=== PATIENT | female | born 1985 | race African-American/Black ===

== ENCOUNTER 2018-01-21 17:11 | Inpatient (IN) | payer MEDICAID ==
[~2018-01-21] VITALS: Ht 157.5 cm; Wt 71.7 kg
--- NOTE | 2018-01-21 17:25 | NUR ---
PRESENTS TO ER C/O COUGH, CONGESTION, FEVER, AND SOB X 3 DAYS. PATIENT HAS HX OF HIV. A/OX 4. BREATHING EVEN AND UNLABORED AT THIS TIME. NO DISTRESS NOTED. VITALS STABLE. SAFETY AND COMFORT MEASURES IN PLACE. AWAITING MD ORDERS.
--- NOTE | 2018-01-21 17:45 | NUR ---
NEW IV STARTED ON LAC, 20G. BLOOD DRAWN AND SENT TO LAB.
[2018-01-21 17:50] LABS: BASOPHILS # (AUTO) 0.3 /CMM (0.0-0.2); BASOPHILS % (AUTO) 3.3 % (0.0-2.0); HEMATOCRIT 32 % (33-45); HEMOGLOBIN 10.9 g/dL (11.5-14.8); LYMPHOCYTES # (AUTO) 1.4 /CMM (0.8-4.8); LYMPHOCYTES % (AUTO) 17.2 % (20.0-44.0); MEAN CORPUSCULAR HGB CONC 35 g/dl (31.0-36.0); MEAN CORPUSCULAR VOLUME 94 fL (82-100); MONOCYTES # (AUTO) 0.5 /CMM (0.1-1.30); MONOCYTES % (AUTO) 6.9 % (2.0-12.0); NEUTROPHILS # (AUTO) 5.7 /CMM (1.8-8.9); NEUTROPHILS % (AUTO) 72.6 % (43.0-81.0); PLATELET COUNT (AUTO) 341 /CMM (150-450); RDW COEFFICIENT OF VARIATION 15.1 (11.5-15.0); RED BLOOD CELL COUNT(AUTO) 3.38 MIL/uL (4.0-5.2); WHITE BLOOD COUNT (AUTO) 7.9 K/uL (4.3-11.0)
[2018-01-21] MEDS ORDERED: IV NS 0.9% 1,000 ML BAG IV ONE (18:00)
[2018-01-21] MEDS ORDERED: ALBUTEROL FS 2.5 MG/3 ML VIAL.NEB NEB ONE (18:00)
[2018-01-21] MEDS ORDERED: IPRATROPIUM NEB FS 0.5 MG/2.5 ML AMPUL.NEB NEB ONE (18:00)
[2018-01-21] MEDS ORDERED: ALBUTEROL FS 2.5 MG/3 ML VIAL.NEB ONE (18:19)
[2018-01-21] MEDS ORDERED: IPRATROPIUM NEB FS 0.5 MG/2.5 ML AMPUL.NEB ONE (18:19)
--- NOTE | 2018-01-21 18:28 | NUR ---
NEW IV STARTED ON RAC, 20G. IV ON LAC, NOT INFUSING WELL. IV FROM LEFT AC REMOVED AND SITE SECURED.
[2018-01-21 18:30] LABS: INR 0.96 (0.85-1.15)
[2018-01-21 18:33] LABS: TROPONIN I < 0.017 ng/mL (0.00-0.056)
[2018-01-21 18:45] LABS: CALCIUM, SERUM 8.8 mg/dL (8.5-10.1); CARBON DIOXIDE 29 mmol/L (21-32); CHLORIDE 100 mmol/L (98-107); CREATININE 0.9 mg/dL (0.6-1.3); GLUCOSE 95 mg/dL (74-106); POTASSIUM 3.4 mmol/L (3.5-5.1); SODIUM SERUM 136 mmol/L (136-145); UREA NITROGEN, BLOOD 9 mg/dL (7-18)
[2018-01-21 18:51] LABS: ALANINE AMINOTRANSFERASE 19 U/L (12-78); ALBUMIN 2.3 g/dL (3.4-5.0); ALKALINE PHOSPHATASE 61 U/L (46-116); ASPARTATE AMINOTRANSFERASE 22 U/L (15-37); BILIRUBIN,DIRECT 0.1 mg/dL (0.0-0.2); BILIRUBIN,TOTAL 0.5 mg/dL (0.2-1.0); TOTAL PROTEIN, SERUM 7.4 g/dL (6.4-8.2)
[2018-01-21] MEDS ORDERED: CEFTRIAXONE 1GM BAG (ER ONLY) 50 ML IV ONE (18:59)
[2018-01-21] MEDS ORDERED: SULFAMETHOXAZOLE/TRIMETHOPRIM 20 ML in IV D5W 500 ML IV ONE (19:00)
[2018-01-21] MEDS ORDERED: SULFAMETHOXAZOLE/TRIMETHOPRIM 20 ML in IV D5W 500 ML IV SCH (19:00)
[2018-01-21] MEDS ORDERED: AZITHROMYCIN 500 MG in IV D5W 250 ML IV ONE (19:00)
[2018-01-21] MEDS ORDERED: CEFTRIAXONE 1GM BAG (ER ONLY) 1 GM/50 ML PIGGYBACK IV ONE (19:00)
--- NOTE | 2018-01-21 19:16 | NUR ---
REPORT GIVEN TO PRASANNA MATHEW FOR CASSANDRA.
--- NOTE | 2018-01-21 19:25 | NUR ---
RECEIVED REPORT FROM PRIYANKA KUO FOR CASSANDRA.
[2018-01-21] MEDS ORDERED: SULFAMETHOXAZOLE/TRIMETHOPRIM 25 ML in IV D5W 500 ML IV ONE (19:30)
[2018-01-21 20:00] VITALS: BP 112/70
--- NOTE | 2018-01-21 20:00 | NUR ---
RECEIVED REPORT REGARDING PATIENT FROM E MARKETING SPECIALIST PRASANNA. AWAITING TO ADMIT THE PATIENT TO THE UNIT
--- NOTE | 2018-01-21 20:00 | NUR ---
SPUTUM CULTURE COLLECTED AND SENT TO LAB
--- NOTE | 2018-01-21 20:00 | NUR ---
PT UNABLE TO GIVE URINE SAMPLE AND REFUSED YIP CATHETER. MADE AWARE.
--- NOTE | 2018-01-21 20:20 | NUR ---
REPORT GIVEN TO LINE UP WORKER ANA FOR CASSANDRA.
[2018-01-21] MEDS ORDERED: IPRATROPIUM NEB FS 0.5 MG/2.5 ML AMPUL.NEB NEB PRN (20:30)
[2018-01-21] MEDS ORDERED: MAG HYDROX/AL HYDROX/SIMETH 30 ML UDC PO PRN (20:30)
[2018-01-21] MEDS ORDERED: ALBUTEROL FS 2.5 MG/0.5 ML VIAL.NEB NEB PRN (20:30)
[2018-01-21] MEDS ORDERED: TUBERCULIN,PURIF.PROT.DERIV. 5 TU/0.1 ML VIAL ID ONE (20:30)
[2018-01-21] MEDS ORDERED: MAGNESIUM HYDROXIDE 30 ML UDC PO PRN (20:30)
[2018-01-21] MEDS ORDERED: ZOLPIDEM TARTRATE 5 MG TABLET PO PRN (20:30)
[2018-01-21] MEDS ORDERED: Z GUARD REMEDY 2 OZ OINT TP PRN (20:30)
[2018-01-21] MEDS ORDERED: ACETAMINOPHEN 325 MG TABLET PO PRN (20:30)
[2018-01-21] MEDS ORDERED: ONDANSETRON HCL/PF 4 MG/2 ML VIAL IVP PRN (20:30)
--- NOTE | 2018-01-21 20:40 | NUR ---
LICENSED CUSTOMS BROKER OPENING NOTE RECEIVED PATIENT ON A GURNEY, ALERT ORIENTEDX4, ABLE TO VERBALIZE NEEDS. PATIENT IS ON 3L O2 THERAPY VIA NC, TOLERATES WELL. REPORTS GENERALIZED WEAKNESS AND PAIN IN THE RIGHT HIP. UPON ASSESSMENT SWELLING AND LUMP NOTED ON THE RIGHT HIP. PHOTOS TAKEN AND PLACED IN CHART. SKIN OTHERWISE IS INTACT. PATIENT PRESENTS WITH 103.1 FEVER. COOLING MEASURES IMPLEMENTED IMMEDIATELY. RESPIRATIONS ARE EVEN AND UNLABORED. DENIES CHEST PAIN AND SOB AT THIS TIME. PATIENT IS CURRENTLY RECEIVING ANTIBIOTIC THAT WAS INITIATED IN THE ER. RIGHT AC IVC 20G, PATENT AND INTACT. PATIENT IS CONTINENT, ABLE TO AMBULATE TO THE BATHROOM WITH ASSISTANCE DUE TO GENERALIZED WEAKNESS. PATIENT ADMITTED TO TELEMETRY UNIT WITH CARDIAC MONITORING AT THIS TIME. AIRBORNE ISOLATION OBSERVED. PATIENT WAS PLACED IN NEGATIVE PRESSURE ROOM. WAS MADE COMFORTABLE. ALL BELONGINGS ARE CHECKED AND ACCOUNTED FOR. MOTHER IS AT BEDSIDE. SAFETY MEASURES IN PLACE, BED IN LOW LOCKED POSITION, HOB ELEVATED, SIDE RAILS UP X2, CALL LIGHT WITHIN EASY REACH, WILL CARRY OUT ALL THE ADMISSION ORDERS AND CONTINUE TO MONITOR.
[2018-01-21] MEDS: predniSONE 20 MG TABLET PO SCH (21:28)
[2018-01-21] MEDS: IV NS 0.9% 1,000 ML IV PRN (21:29)
--- NOTE | 2018-01-21 21:30 | NUR ---
medication Tubersol was not administered as it was not available in the unit or anywhere else in the hospital. will endorse to am nurse to obtain it from pharmacy and administer.
[2018-01-21] MEDS ORDERED: LEVOFLOXACIN 750 MG /D5W 150ML 150 ML IV ONE (22:20)
[2018-01-21] MEDS: LEVOFLOXACIN 750 MG /D5W 150ML 750 MG in PREMIX 1 EA IV SCH (22:47)
--- NOTE | 2018-01-21 23:00 | NUR ---
PATIENT'S BODY TEMPERATURE DECREASED TO 99.0 AT THIS TIME. WILL CONTINUE TO MONITOR.
[2018-01-21 23:43] VITALS: BP 112/70
[2018-01-22] VITALS: BP 94/57
[2018-01-22 04:00] VITALS: BP 101/49
[2018-01-22] MEDS: SULFAMETH/TRIMETH 800/160 MG 1 UDTAB TABLET PO SCH ×2 (04:31→13:31)
--- NOTE | 2018-01-22 06:00 | NUR ---
PATIENT REFUSES MORNING LABS. WILL REATTEMPT AT A LATER TIME.
--- NOTE | 2018-01-22 06:46 | NUR ---
CAMP HEAD COUNSELOR CLOSING NOTE PATIENT IN BED SLEEPING, EASILY AROUSED TO VERBAL STIMULI, ORIENTEDX4, ABLE TO VERBALIZE NEEDS. PATIENT IS ON ROOM AIR, TOLERATES WELL. SKIN IS INTACT. PATIENT 'S BODY TEMPERATURE REMAINED WNL THROUGHOUT THE NIGHT. RIGHT AC IVC 20G, WIT FLUIDS RUNNING AT 75ML/HR, PATENT AND INTACT. PATIENT IS CONTINENT, ABLE TO AMBULATE TO THE BATHROOM WITH ASSISTANCE DUE TO GENERALIZED WEAKNESS. PATIENT ON CARDIAC MONITORING WITH SR AND HR OF 76 AT THIS TIME. AIRBORNE ISOLATION OBSERVED. PATIENT KEPT CLEAN AND COMFORTABLE. ALL NEEDS ATTENDED, SAFETY MEASURES IN PLACE, BED IN LOW LOCKED POSITION, HOB ELEVATED, SIDE RAILS UP X2, CALL LIGHT WITHIN EASY REACH, WILL ENDORSE TO AM NURSE FOR CASSANDRA.
--- NOTE | 2018-01-22 07:50 | NUR ---
ACOUSTICAL TILE PATTERNMAKER OPENING NOTE RECEIVED BEDSIDE SBAR REPORT. PATIENT IS A/O X3, COOPERATIVE IN BED. BED IS LOCKED IN LOWEST POSITION, SIDE RAILS UP X2. CALL LIGHT WITHIN REACH. ON AIRBORNE ISOLATION FOR R/O TB. PATIENT IN BED SLEEPING, EASILY AROUSED TO VERBAL STIMULI. SKIN IS INTACT WITH L/HIP LUMP. SPO2 97% ON RA. VS WNL. PATIENT IS CONTINENT, ABLE TO AMBULATE TO THE BATHROOM. PATIENT ON EXTERNAL CARDIAC MONITORING WITH SR 76. ALL NEEDS ATTENDED, SAFETY MEASURES IN PLACE. WILL CONTINUE TO ASSESS/MONITOR THROUGHOUT THE SHIFT.
[2018-01-22 08:00] VITALS: BP 93/54
[2018-01-22] MEDS: predniSONE 20 MG TABLET PO SCH ×2 (08:27→21:18)
[2018-01-22] MEDS: PANTOPRAZOLE 40 MG TABLET.DR PO SCH (08:27)
--- NOTE | 2018-01-22 10:46 | NUR ---
WOUND CARE CONSULT: LIMITED ASSESSMENT TODAY PT ONLY ALLOWED ASSESSMENT OF RT HIP AREA. RT HIP HAS RAISED AREA WHICH IS TENDER, NO DRAINAGE NOTED. RECOMMEND SURGICAL CONSULT. WILL SEE PRN. Addendum: 01/22/18 at 1047 by KAYLEIGH SIMPSON WNDNU Amended: Links added.
--- NOTE | 2018-01-22 12:22 | NUR ---
Social service consult requested by Dr. See for substance abuse. Pt. is a 32 year old female who was admitted to [facility] for pneumonia. SW discussed case with Ju Gallardo prior to seeing the pt. Per SYLVIA Gallardo, pt. does not want to talk to anyone at this time. Pt. informed SYLVIA Gallardo earlier that she lives with her mom and has no children. Pt. was in group home for 2 1/2 months and was released 01/01/2018. Pt. is HIV positive and not compliant with her medications. SW to attempt to talk to pt. at a later time when she is more open to talking.
--- NOTE | 2018-01-22 14:36 | NUR ---
GOLD LEAF ROLLER CLOSING NOTE RECEIVED BEDSIDE SBAR REPORT. PATIENT IS A/O X3, COOPERATIVE IN BED. BED IS LOCKED IN LOWEST POSITION, SIDE RAILS UP X2. CALL LIGHT WITHIN REACH. ON AIRBORNE ISOLATION FOR R/O TB. PATIENT IN BED SLEEPING, EASILY AROUSED TO VERBAL STIMULI. SKIN IS INTACT WITH L/HIP LUMP. SPO2 97% ON RA. VS WNL. PATIENT IS CONTINENT, ABLE TO AMBULATE TO THE BATHROOM. PATIENT ON EXTERNAL CARDIAC MONITORING WITH SR 76. ALL NEEDS ATTENDED, SAFETY MEASURES IN PLACE. WILL CONTINUE TO ASSESS/MONITOR THROUGHOUT THE SHIFT. Addendum: 01/22/18 at 1459 by JONNY MARCANO RN WRONG NOTE
[2018-01-22 16:00] VITALS: BP 118/77
[2018-01-22] MEDS: IV NS 0.9% 1,000 ML IV PRN (18:34)
--- NOTE | 2018-01-22 19:05 | NUR ---
MS RN CLOSING NOTE PATIENT IS A/O X3, COOPERATIVE IN BED. BED IS LOCKED IN LOWEST POSITION, SIDE RAILS UP X2. CALL LIGHT WITHIN REACH. RESPIRATORY ISOLATION DISCHARGED BY DR HANKS. PATIENT IN BED SLEEPING, EASILY AROUSED TO VERBAL STIMULI. SKIN IS INTACT WITH L/HIP LUMP. SURGICAL TEAM INFORMED. SPO2 96% ON RA. VS WNL. PATIENT IS CONTINENT, ABLE TO AMBULATE TO THE BATHROOM. STERILE CONTAINER PROVIDED FOR URINE COLLECTION. PATIENT EDUCATED ON CLEAN CATCH TECHNIQUE AND VERBALIZED UNDERSTANDING. ALL NEEDS ATTENDED, SAFETY MEASURES IN PLACE. ENDORSED TO THE ADDING MACHINE OPERATOR NURSE FOR CASSANDRA.
--- NOTE | 2018-01-22 19:40 | NUR ---
RN MS OPENING NOTES PATIENT IN BED, AWAKE ALERT AND ORIENTED X 3-4 RESPIRATIONS EVEN AND UNLABORED WITH EQUAL RISE AND FALL OF CHEST, NO FACIAL GRIMACING PRESENT, NO COMPLAINTS OF PAIN OT DISCOMFORT AT THIS TIME, RIGHT AC IV SITE 20 # GAUGE INTACT AND PATENT, NO REDNESS , NO INFILTRATION PRESENT, IVF FLUIDS RUNNING ORDERED, ORIENTED TO STAFF, ROOM AND CALL LIGHT, CALL LIGHT KEPT WITHIN REACH, ALL NEEDS ATTENDED AT THIS TIME, REMAINS CLEAN AND DRY ASSISTED TO BATHROOM PATIENT IS AMBULATORY, SAFETY PRECAUTIONS RENDERED, LOW BED, LOCKED, , WILL CONTINUE TO MONITOR.
[2018-01-22 20:00] VITALS: BP 104/60
[2018-01-22] MEDS ORDERED: SULFAMETHOXAZOLE/TRIMETHOPRIM 10 ML in IV D5W 250 ML IV SCH (20:00)
[2018-01-22 21:17] LABS: HEMATOCRIT 33 % (33-45); LYMPHOCYTES # (AUTO) 0.7 /CMM (0.8-4.8); LYMPHOCYTES % (AUTO) 10.1 % (20.0-44.0); MEAN CORPUSCULAR HGB CONC 34 g/dl (31.0-36.0); MEAN CORPUSCULAR VOLUME 97 fL (82-100); MONOCYTES # (AUTO) 0.2 /CMM (0.1-1.30); MONOCYTES % (AUTO) 2.5 % (2.0-12.0); NEUTROPHILS # (AUTO) 6.2 /CMM (1.8-8.9); NEUTROPHILS % (AUTO) 87.4 % (43.0-81.0); PLATELET COUNT (AUTO) 279 /CMM (150-450); RDW COEFFICIENT OF VARIATION 16.4 (11.5-15.0); WHITE BLOOD COUNT (AUTO) 7.1 K/uL (4.3-11.0)
[2018-01-22 21:19] LABS: APPEARANCE,URINE SL CLOUDY (CLEAR); BILIRUBIN,URINE NEGATIVE (NEGATIVE); BLOOD, URINE NEGATIVE Ery/uL (NEGATIVE); COLOR,URINE YELLOW (YELLOW); KETONES,URINE NEGATIVE (NEGATIVE); LEUKOCYTE ESTERASE ,URINE NEGATIVE (NEGATIVE); NITRITE, URINE NEGATIVE (NEGATIVE); PH,URINE 7.5 (5.0-8.0); PROTEIN,URINE TRACE mg/dl (NEGATIVE); UGLUCOSE TRACE mg/dL (NEGATIVE); UROBILINOGEN,URINE >=8.0 EU/dL (0.2)
[2018-01-22] MEDS: LEVOFLOXACIN 750 MG /D5W 150ML 750 MG in PREMIX 1 EA IV SCH (21:19)
[2018-01-22 21:30] LABS: BILIRUBIN,TOTAL 0.3 mg/dL (0.2-1.0); CALCIUM, SERUM 9.2 mg/dL (8.5-10.1); CREATININE 0.8 mg/dL (0.6-1.3); MAGNESIUM 1.7 mg/dL (1.8-2.4); PHOSPHORUS 1.6 mg/dL (2.5-4.9); POTASSIUM 3.5 mmol/L (3.5-5.1)
[2018-01-22 21:32] LABS: BACTERIA,URINE Few /HPF (None Seen); RBC,URINE 0-2 /HPF (0-2); SQUAMOUS EPITHELIAL CELL,UR Few /HPF (None Seen); WBC,URINE 0-2 /HPF (0-3)
[2018-01-22 21:36] LABS: THYROID STIMULATING HORMONE 0.123 uIU/mL (0.358-3.74)
--- NOTE | 2018-01-23 01:24 | NUR ---
RN MS NOTES PATIENT REQUESTING FOR A SLEEPING PILL, YMRTLEIEN ORDERED OFFERED, PATIENT AGREED TO TAKE, GIVEN ORDERED. WILL CONTINUE TO MONITOR.
--- NOTE | 2018-01-23 03:30 | NUR ---
RN NOTES LIA COSTELLO MADE AWARE OF OUT OF RANGE LABS , MAG AND PHOS LAB LEVELS, NEGATIVE TEST, AWAITING NEW ORDERS TO NOTE AND CARRY OUT , WILL FOLLOW ORDERED.
[2018-01-23] MEDS ORDERED: K PHOS NEUTRAL 250 MG TABLET PO ONE (04:00)
[2018-01-23] MEDS: MAGNESIUM OXIDE 400 MG TABLET PO SCH ×2 (04:42→21:04)
[2018-01-23] MEDS: SULFAMETHOXAZOLE/TRIMETHOPRIM 20 ML in IV D5W 500 ML IV SCH ×4 (04:42→15:12)
--- NOTE | 2018-01-23 05:44 | NUR ---
RN MS NOTES PATIENT REFUSED AM LAB DRAW.
--- NOTE | 2018-01-23 06:37 | NUR ---
RN MS CLOSING NOTES PATIENT IN BED, AWAKE ALERT AND ORIENTED X 3-4 RESPIRATIONS EVEN AND UNLABORED WITH EQUAL RISE AND FALL OF CHEST, NO FACIAL GRIMACING PRESENT, NO COMPLAINTS OF PAIN OT DISCOMFORT AT THIS TIME, RIGHT AC IV SITE 20 # GAUGE INTACT AND PATENT, NO REDNESS , NO INFILTRATION PRESENT, IVF FLUIDS RUNNING ORDERED CALL LIGHT KEPT WITHIN REACH, ALL NEEDS ATTENDED AT THIS TIME, SAFETY PRECAUTIONS RENDERED, LOW BED, LOCKED, , WILL CONTINUE TO MONITOR AND ENDORSE TO NEXT SHIFT.
[2018-01-23] MEDS: PANTOPRAZOLE 40 MG TABLET.DR PO SCH (06:50)
[2018-01-23 07:54] VITALS: BP 114/70
--- NOTE | 2018-01-23 08:00 | NUR ---
MS RN RECEIVED ON BED, AWAKE,ALERT,ORIENTED X4,PATIENT APPEARS WEAK, THOUGH DENIES PAIN AT THIS TIME. ABDOMEN SOFT,POSITIVE BOWEL SOUNDS,WILL MONITOR PATIENT'S CONDITION.
[2018-01-23] MEDS: predniSONE 20 MG TABLET PO SCH ×2 (08:58→21:04)
--- NOTE | 2018-01-23 09:00 | NUR ---
MS RN REFUSED BREAKFAST, DUE MEDS GIVEN,TOLERATE DWELL.
--- NOTE | 2018-01-23 10:02 | NUR ---
MS RN WAS SEEN BY DR. QIU ,NO ORDERS AT THIS TIME.
--- NOTE | 2018-01-23 13:30 | NUR ---
ms rn received a call from [facility] w/ blood culture result - gram positive cocci in chain,luke figueroa notified and aware.
[2018-01-23] MEDS: HYDROCODONE/APAP 5/325MG 1 EACH TABLET PO PRN ×2 (15:08→21:12)
--- NOTE | 2018-01-23 15:20 | NUR ---
ms rn was seen by dr. mishra, did debridement to right hip. w/ dressing intact,noted to have moderate purulent drainage.
[2018-01-23 16:58] VITALS: BP 107/65
--- NOTE | 2018-01-23 19:30 | NUR ---
MS RN OPENING NOTES: PATIENT IN BED, AOX4, ON ROOM AIR, BREATHING EVEN AND UNLABORED. APPEARS CALM AND IN NO DISTRESS, DENIES PAIN AT THIS TIME. NOTED CLEAN DRY DRESSING OVER R HIP. PIV OVER RAC G20 INTACT AND PATENT, CURRENTLY INFUSING WITH IV ATB BACTRIM. PROVIDED FOR COMFORT AND SAFETY. BED IN LOWEST AND LOCKED POSITION, SIDERAILS UP X 2, CALL LIGHT WITHIN REACH. WILL CONT TO MONITOR.
[2018-01-23 20:00] VITALS: BP 113/62
[2018-01-23] MEDS: LEVOFLOXACIN 750 MG /D5W 150ML 750 MG in PREMIX 1 EA IV SCH (21:16)
[2018-01-23 23:11] LABS: BASOPHILS % (AUTO) 0.1 % (0.0-2.0); HEMATOCRIT 33 % (33-45); HEMOGLOBIN 11.1 g/dL (11.5-14.8); LYMPHOCYTES # (AUTO) 1.8 /CMM (0.8-4.8); LYMPHOCYTES % (AUTO) 16.5 % (20.0-44.0); MEAN CORPUSCULAR HGB CONC 34 g/dl (31.0-36.0); MEAN CORPUSCULAR VOLUME 96 fL (82-100); MONOCYTES # (AUTO) 0.5 /CMM (0.1-1.30); MONOCYTES % (AUTO) 4.6 % (2.0-12.0); NEUTROPHILS # (AUTO) 8.4 /CMM (1.8-8.9); NEUTROPHILS % (AUTO) 78.8 % (43.0-81.0); PLATELET COUNT (AUTO) 403 /CMM (150-450); RDW COEFFICIENT OF VARIATION 15.8 (11.5-15.0); RED BLOOD CELL COUNT(AUTO) 3.42 MIL/uL (4.0-5.2); WHITE BLOOD COUNT (AUTO) 10.6 K/uL (4.3-11.0)
[2018-01-23 23:22] LABS: CALCIUM, SERUM 8.8 mg/dL (8.5-10.1); POTASSIUM 3.1 mmol/L (3.5-5.1)
[2018-01-24] MEDS: SULFAMETHOXAZOLE/TRIMETHOPRIM 20 ML in IV D5W 500 ML IV SCH ×2 (00:18→08:27)
--- NOTE | 2018-01-24 00:39 | NUR ---
RN NOTES: AM LABS FOR 01/23 WAS ONLY DRAWN AROUND 2330 PM PATIENT HAS BEEN REFUSING BEFORE THIS AM. CALLED HIMA ANAND NP ALMOND BLANCHER TO REPORT SERUM K OF 3.1. AWAITING CALL BACK.
[2018-01-24] MEDS ORDERED: POTASSIUM CL. PREMIX PERIPHER. 50 ML IV SCH (01:00)
--- NOTE | 2018-01-24 02:11 | NUR ---
RN NOTES: PATIENT UNABLE TO TOLERATE IV POTASSIUM REPLACEMENT, EVEN WHEN IT WAS SLOWED AND WITH NS RUNNING WITH IT. INFORMED HIMA DELEON. NEW ORDER GIVEN FOR KDUR 40 MEQS PO. NOTED AND CARRIED OUT.
[2018-01-24] MEDS ORDERED: POTASSIUM CHLORIDE 20 MEQ TAB.PRT.SR PO ONE (02:30)
[2018-01-24 05:11] LABS: *BASOS 0 % (Not Estab.); *EOS 1 % (Not Estab.); *EOS, ABSOLUTE 0.1 x10E3/uL (0.0-0.4); *HCT 39.5 % (34.0-46.6); *HGB 13.1 g/dL (11.1-15.9); *IMMATURE GRANULOCYTES 0 % (Not Estab.); *LYMPHOCYTES 11 % (Not Estab.); *LYMPHS, ABSOLUTE 0.7 x10E3/uL (0.7-3.1); *MCH 32.5 pg (26.6-33.0); *MCHC 33.2 g/dL (31.5-35.7); *MCV 98 fL (79-97); *MONOCYTES 2 % (Not Estab.); *MONOS, ABSOLUTE 0.1 x10E3/uL (0.1-0.9); *NEUTROPHILS 86 % (Not Estab.); *NEUTROPHILS, ABSOLUTE 5.1 x10E3/uL (1.4-7.0); *PLT 316 x10E3/uL (150-379); *RBC 4.03 x10E6/uL (3.77-5.28); *RDW 15.7 % (12.3-15.4)
[2018-01-24] MEDS: IV NS 0.9% 1,000 ML IV PRN (06:20)
[2018-01-24] MEDS: PANTOPRAZOLE 40 MG TABLET.DR PO SCH (06:41)
--- NOTE | 2018-01-24 06:50 | NUR ---
MS RN CLOSING NOTES: PATIENT IN BED, AOX4, ON ROOM AIR, BREATHING EVEN AND UNLABORED. APPEARS CALM AND IN NO DISTRESS. PIV OVER RAC G20 INTACT AND INFUSING WELL WITH NS RUNNING AT 75 ML/HR. PROVIDED FOR COMFORT AND SAFETY. DRESSING CHANGED OVER R HIP INCISION. BED IN LOWEST AND LOCKED POSITION, SIDERAILS UP X 3, CALL LIGHT WITHIN REACH. WILL ENDORSE TO AM RN FOR CASSANDRA.
[2018-01-24 08:00] VITALS: BP 116/75
--- NOTE | 2018-01-24 08:00 | NUR ---
RN NOTES RECEIVED PATIENT IN THE BED A/O 4. PATIENT HAS NO COMPLAINING OF RESPIRATORY DISTRESS, NO SOB. PATIENT HAS IV INFUSING NS AT 75 ML/HR INTACT ON RIGHT AC AREA. ENCOURAGED PATIENT TO EXPRESS FEELINGS AND CONCERNS. PATIENT STATE " I WILL GO HOME NOW". BECCA DELEON NOTIFIED. PATIENT HAS WOUND ON RIGHT UPPER THIGH, DRESSING INTACT. PATIENT REFUSED PAIN AT THIS TIME. PATIENT TAKE SCHEDULED MEDICATION, VAS STABLE. PT AMBULATORY, USING BATHROOM. NEEDS ATTENDED AND ANTICIPATED, CALL LIGHT WITHIN TO REACH. CONTINUED MONITORING.
[2018-01-24] MEDS: predniSONE 20 MG TABLET PO SCH (08:27)
[2018-01-24] MEDS: HYDROCODONE/APAP 5/325MG 1 EACH TABLET PO PRN (09:44)
--- NOTE | 2018-01-24 09:44 | NUR ---
RN NOTES ADMINISTERED NARCO 5/325 MG PO PRN FOR RIGHT THIGH WOUND PAIN 02/02, PER PATIENT REQUEST, TAKEN WOUND CULTURE, DRESSING CHANGED. PATIENT INSISTING TO BE DISCHARGE AFTER DRESSING, AND BLOOD WORK. BECCA DELEON AWARE OF. CONTINUED MONITORING.
--- NOTE | 2018-01-24 10:00 | NUR ---
RN NOTES PATIENT SLEEPING AT THIS TIME, NO ACUTE DISTRESS. MEDICATION WERE ADMINISTERED FOR PAIN EFFECTIVE. CONTINUED MONITORING.
[2018-01-24 10:15] LABS: BASOPHILS % (AUTO) 0.1 % (0.0-2.0); HEMATOCRIT 34 % (33-45); HEMOGLOBIN 11.4 g/dL (11.5-14.8); LYMPHOCYTES % (AUTO) 13.9 % (20.0-44.0); MEAN CORPUSCULAR HGB CONC 34 g/dl (31.0-36.0); MEAN CORPUSCULAR VOLUME 97 fL (82-100); MONOCYTES # (AUTO) 0.1 /CMM (0.1-1.30); MONOCYTES % (AUTO) 0.8 % (2.0-12.0); NEUTROPHILS # (AUTO) 6.3 /CMM (1.8-8.9); NEUTROPHILS % (AUTO) 85.2 % (43.0-81.0); PLATELET COUNT (AUTO) 372 /CMM (150-450); RDW COEFFICIENT OF VARIATION 16.1 (11.5-15.0); RED BLOOD CELL COUNT(AUTO) 3.53 MIL/uL (4.0-5.2); WHITE BLOOD COUNT (AUTO) 7.4 K/uL (4.3-11.0)
[2018-01-24 10:18] LABS: *% CD 4 POS. LYMPH 13.8 % (30.8-58.5); *% CD 8 POS. LYMPH 46.9 % (12.0-35.5); *ABSOLUTE CD 4 HELPER 97 /uL (359-1519); *ABSOLUTE CD 8 SUPPRESSOR 328 /uL (109-897); *CD4/CD8 RATIO 0.29 (0.92-3.72)
[2018-01-24 10:23] LABS: CALCIUM, SERUM 8.3 mg/dL (8.5-10.1); CREATININE 0.9 mg/dL (0.6-1.3); POTASSIUM 4.2 mmol/L (3.5-5.1)
--- NOTE | 2018-01-24 12:52 | NUR ---
RN NOTES PATIENT LEFT UNIT WITH AMA WITH HER MOM. MOM TRYING TO CONVINCE DAUGHTER TO STAY AND GET ANTIBIOTIC, BUT PATIENT REFUSED. PATIENT STATE " I WILL FOLLOW MY PRIMARY MD". EDUCATION PROVIDED BY LIVING AMA.
[2018-01-26 15:09] LABS: *HIV-1 RNA BY PCR 22970 copies/mL (.); *HIV-1 log10 RNA 4.361 (.)
== END 2018-01-24 12:52 | disposition left against medical advice (07) | DRG 892 ==
LOC: ER 17:12 → TELE 20:01 → MED 01-22 09:24
PROVIDERS: ADMIT Hospitalist; ATTEND Hospitalist
PROC: 0JBL0ZZ Excision of Right Upper Leg Subcutaneous Tissue and Fascia, Open Approach (ICD-10-PCS; principal; 2018-01-23)
DX: A41.9 Sepsis, unspecified organism (principal); B20 Human immunodeficiency virus [HIV] disease; E44.0 Moderate protein-calorie malnutrition; J13 Pneumonia due to Streptococcus pneumoniae; E88.09 Other disorders of plasma-protein metabolism, not elsewhere classified; L02.415 Cutaneous abscess of right lower limb; E87.6 Hypokalemia; D64.9 Anemia, unspecified; Z68.28 Body mass index [BMI] 28.0-28.9, adult; J45.909 Unspecified asthma, uncomplicated; Z91.14 Patient's other noncompliance with medication regimen; F17.210 Nicotine dependence, cigarettes, uncomplicated; F10.10 Alcohol abuse, uncomplicated; F14.10 Cocaine abuse, uncomplicated; L02.92 Furuncle, unspecified; L02.32 Furuncle of buttock; Y90.9 Presence of alcohol in blood, level not specified
CPT/HCPCS: 36415; 71045-TC; 80048-TC; 80053-TC; 80061-TC; 80076-TC; 81000-TC; 83605-TC; 83615-TC; 83735-TC; 84100-TC; 84439-TC; 84443-TC; 84484-TC; 84703-TC; 85025-TC; 85730-TC; 86360; 86580-TC; 87040-TC; 87070-TC; 87081-TC; 87086-TC; 87186-TC; 87400; 87536; A4216; A4606; A6253; A6402; A6403; A6407; J0456; J0696; J1956; J3480; J3490; J7030; J7060; Z7610